=== PATIENT | female | born 1950 | race Caucasian/White ===

== ENCOUNTER 2023-07-10 10:47 | Inpatient (IN) | payer MEDICARE, OTHER ==
[2023-07-05 12:32] LABS: BILIRUBIN,URINE NEGATIVE (Neg); CLARITY,URINE CLOUDY (Clear); COLOR,URINE YELLOW (Yellow); GLUCOSE, URINE NEGATIVE (Neg); KETONES,URINE NEGATIVE (Neg); LEUKOCYTE ESTERASE ,URINE LARGE (Neg); NITRITES, URINE POSITIVE (Neg); OCCULT BLOOD,URINE MODERATE (Neg); PROTEIN,URINE NEGATIVE (Neg); UROBILINOGEN,URINE 0.2 E.U/dL (0.2-1.0)
[2023-07-05 12:33] LABS: UA COLLECTION TYPE CLN CATCH MIDSTREAM
[2023-07-05 12:36] LABS: EOSINOPHILS # (AUTO) 0.2 X10'3 (0-0.9); MEAN CORPUSCULAR VOLUME 90.4 FL (78-98); MEAN PLATELET VOLUME 7.6 FL (7.4-10.4); PRE OP HEMOGLOBIN 11.9 g/dL (12.0-16.0)
[2023-07-05 12:38] LABS: BASOPHILS # (AUTO) 0.1 X10'3 (0-0.2); BASOPHILS % (AUTO) 0.9 % (0-1); EOSINOPHILS % (AUTO) 2.6 % (0-6); LYMPHOCYTES # (AUTO) 0.8 X10'3 (1.1-4.8); LYMPHOCYTES % (AUTO) 10.8 % (21-51); MEAN CORPUSCULAR HEMOGLOBIN 29.5 PG (27.0-31.0); MEAN CORPUSCULAR HGB CONC 32.6 g/dL (33.0-36.5); MONOCYTES # (AUTO) 0.4 X10'3 (0-0.9); MONOCYTES % (AUTO) 5.2 % (2-12); NEUTROPHILS # (AUTO) 5.7 X10'3 (1.8-7.7); NEUTROPHILS % (AUTO) 80.5 % (42-75); PRE OP HEMATOCRIT 36.5 % (35.0-45.0); PRE OP PLATELET COUNT 243 X10'3 (140-440); PRE OP WHITE BLOOD COUNT 7.1 10'3 (4.8-10.8); RED BLOOD COUNT 4.04 X10'6 (4.20-5.60); RED CELL DISTRIBUTION WIDTH 15.6 % (11.5-14.5)
[2023-07-05 12:44] LABS: BACTERIA,URINE 4+ /HPF (Neg); MUCUS STRANDS NONE SEEN /LPF (Neg); SQUAMOUS EPITHELIAL CELL,UR MODERATE /LPF (FEW); WBC,URINE TNTC /HPF (0-4)
[2023-07-05 12:45] LABS: WBC CLUMPS,URINE MODERATE /HPF (NEGATIVE)
[2023-07-05 12:49] LABS: ALBUMIN 3.7 G/DL (3.4-5.0); ALBUMIN/GLOBULIN RATIO 1.1 (1.1-1.5); ALKALINE PHOSPHATASE 165 IU/L (46-116); BLOOD UREA NITROGEN 15 MG/DL (7-18); BUN/CREATININE RATIO 15.5 (10.0-20.0); CALCIUM 8.7 MG/DL (8.5-10.1); CHLORIDE 104 MMOL/L (99-107); CREATININE 0.97 MG/DL (0.40-0.90); PRE OP ALT 28 U/L (30-65); PRE OP ANION GAP 7 (8-16); PRE OP AST 15 U/L (10-37); PRE OP BILIRUB, TOTAL 0.7 MG/DL (0.0-1.0); PRE OP GLUCOSE 169 MG/DL (70-104); PRE OP POTASSIUM 4.4 MMOL/L (3.4-5.1); PRE OP SODIUM 137 MMOL/L (135-145); TOTAL CARBON DIOXIDE 25.8 MMOL/L (24-32); TOTAL PROTEIN 7.2 G/DL (6.4-8.2); eGFR 56 ML/MIN
[2023-07-05 12:51] LABS: HEMOGLOBIN A1C 7.5 % (4.5-6.2)
[~2023-07-10] VITALS: Ht 157.5 cm; Wt 74.8 kg
[2023-07-10] VITALS (25 sets, daily range): BP systolic 129–196; BP diastolic 54–100; PULSE 73–98; RESP 12–21; TEMP 97.4–98.5; O2SAT 92–99
[2023-07-10] MEDS: nitroPRUSSIDE (NIPRIDE) (200MCG/ML) 100ML Drip IV SCH ×2 (05:30→23:19)
[~2023-07-10 10:47] MED LIST: ASPI81TA52 PO; ATOR80TA PO; CARV6.253 PO; DOCUMENT DATE & TIME OF BETA-BLOCKER PO ONE; EMPA25TA PO; GLIM4TAB7 PO; METF-517 PO; RIVA20TA PO; SPIR25TA5 PO; cefazolin 2gm/D5W 100mL 100 ML IV ONE; famotidine 20mg tablet PO ONE; naloxone 0.4 mg/ml inj IV PRN; ondansetron/PF 4mg/2ml inj IV PRN; phenylephrine inj 50 MG in normal saline 250ml IV solN IV SCH; ringers solution, lacted 1,000 ML IV SCH
[2023-07-10] MEDS ORDERED: heparin 10,000 units/1 ML INJ ONE (11:31)
[2023-07-10] MEDS ORDERED: LIDOcaine 1% (10mg/ml) 2ml vial ONE (11:31)
[2023-07-10] MEDS ORDERED: ringers solution, lacted 1,000 ML IV SCH (12:05)
[2023-07-10] MEDS ORDERED: nitroPRUSSIDE sod inj. 50 MG in dextrose 5%-water 248 ML IV SCH (12:05)
[2023-07-10] MEDS ORDERED: fentaNYL/PF 50MCG/1 ML 2ML syringe IV PRN ×2 (12:05)
[2023-07-10] MEDS ORDERED: morphine 2 MG/ML inj. syringe IV PRN (12:05)
[2023-07-10] MEDS ORDERED: ondansetron/PF 4mg/2ml inj IV PRN (12:05)
[2023-07-10] MEDS ORDERED: morphine 4 MG/ML inj SYRINge IV PRN (12:05)
[2023-07-10] MEDS ORDERED: PHENYLephrine 10mg/ml inj. 100 MG in normal saline 250ml IV soln 240 ML IV SCH (12:05)
[2023-07-10] MEDS ORDERED: enalaprilat dihydrate 2.5mg/2ml vial IV PRN (12:05)
[2023-07-10] MEDS ORDERED: sevoflurane 250ml liquid IH ONE (13:21)
[2023-07-10] MEDS ORDERED: midazolam 1 mg/ML 2ml injection ONE (13:28)
[2023-07-10] MEDS ORDERED: fentaNYL/PF 50MCG/1 ML 2ML syringe ONE (13:28)
[2023-07-10] MEDS ORDERED: rocuronium 10mg/ml inj IV ONE (13:41)
[2023-07-10] MEDS ORDERED: LIDOcaine 2% (20mg/ml) 5ml vial ONE (13:41)
[2023-07-10] MEDS ORDERED: propofol inj 20 ML IV ONE (13:41)
[2023-07-10] MEDS ORDERED: ondansetron/PF 4mg/2ml inj ONE (13:42)
[2023-07-10] MEDS ORDERED: sugammadex 200mg/2ml injection IV ONE (13:43)
[2023-07-10] MEDS ORDERED: labetalol 20mg/4ml (5mg/ml) syringe IV ONE (13:59)
[2023-07-10] MEDS ORDERED: ePHEDrine 50MG/ML INJ. ONE (14:20)
--- NOTE | 2023-07-10 15:33 | NUR ---
Received from OR via ICU BED TO RR 5, accompanied by Anesthesiologist DR MARY and report given by Anesthesiolgist. PT PRESENTS WITH 20G RIGHT FOREARM, ART LINE RIGHT WRIST, SPO2 96% 10L MASK, RIGHT CAROTID JASON DRAIN 15 WITH APROX 1ML OUTPUT, FAVIAN CHECK INTACT, DISTATL PULSES PALPABLE, VSS. Addendum: 07/10/23 at 1549 by Marilu Castaneda RN, RN Amended: Links added.
[2023-07-10] MEDS: hydrALAZINE 20mg/ml inj. IV PRN ×2 (15:52→16:09)
--- NOTE | 2023-07-10 17:33 | NUR ---
Report called to receiving nurse DOMI ALBARRAN. Transferred via ICU BED ON MONITOR TO ICU 2009. PT HOOKES UP TO MONITORS, BED IN LOW LOCKED POSITION, DOMI ALBARRAN AT BEDSIDE. CHART GIVNE TO DOMI ALBARRAN WITH PT UPPER AND LOWER DENTURES IN A DENTURE CUP WITH PT STICKER. FAMILY HAS PT Belongings. Special Issues communicated to receiving nurse. Addendum: 07/10/23 at 1741 by Marilu Castaneda RN, RN Amended: Links added.
[2023-07-10] MEDS ORDERED: proCHLORperazine 10 MG/2 ml inj IV PRN (17:40)
--- NOTE | 2023-07-10 17:46 | NUR ---
pT ARRIVED FROM SURGERY AT 17;30 hooked up to monitor and linens straightened up. nauseated and vomiting compazine ordered per Dr. Merino order verbally
--- NOTE | 2023-07-10 18:40 | NUR ---
I have received report and assumed care of a 72 year old female with a history of CVA with no residual effects, CO, HTN, and DM2. Pt underwent a left carotid endarterectomy with bovine patch. pt is on Nipride to keep sbp 100-160. Pt is alert and oriented, speech clear thought process is clear, denies numbness and tingling.
[2023-07-10] MEDS: HYDROcodone/acetaminophen 10/325mg tab PO PRN (20:24)
--- NOTE | 2023-07-10 20:30 | NUR ---
pt c/o not being able to urinate, bladder scan showed 568 ml, orders to place delarosa cath, pt tolerated well, urine is clear no sediment noted
[2023-07-11] VITALS (24 sets, daily range): BP systolic 114–163; BP diastolic 47–88; PULSE 75–186; RESP 11–25; O2SAT 93–99
[2023-07-11 04:19] LABS: GLUCOSE 164 MG/DL (70-104); POTASSIUM 3.8 MMOL/L (3.5-5.1); SODIUM 138 MMOL/L (135-145)
[2023-07-11 04:20] LABS: ALANINE AMINOTRANSFERASE 23 U/L (12-78); ALBUMIN 3.1 G/DL (3.4-5.0); ALKALINE PHOSPHATASE 133 IU/L (46-116); ANION GAP 5 (8-16); ASPARTATE AMINO TRANSFERASE 16 U/L (10-37); BILIRUBIN,TOTAL 0.6 MG/DL (0.1-1.0); BLOOD UREA NITROGEN 15 MG/DL (7-18); CALCIUM 8.1 MG/DL (8.5-10.1); CHLORIDE 105 MMOL/L (99-107); CREATININE 0.88 MG/DL (0.40-0.90); TOTAL PROTEIN 6.2 G/DL (6.4-8.2); eCRCL 46 ML/MIN; eGFR 63 ML/MIN
[2023-07-11] MEDS: EMPAGLIFLOZIN 25 MG TABLET PO SCH ×2 (08:00→09:21)
[2023-07-11] MEDS: K and/or MAG REPLACEMENT MC SCH (08:00)
[2023-07-11] MEDS ORDERED: carvedilol 6.25mg tablet PO SCH (08:00)
[2023-07-11] MEDS: aspirin 81mg, enteric-coated 1 TAB TABLET.DR PO SCH (09:21)
[2023-07-11] MEDS: rivaroxaban 20mg tablet PO SCH (09:21)
[2023-07-11] MEDS ORDERED: dextrose 50%-water 50ml dispensing syringe IV PRN ×2 (09:55)
[2023-07-11] MEDS ORDERED: glucagon, human recombinant 1mg kit SUBCUT PRN (09:55)
[2023-07-11] MEDS ORDERED: DEXTROSE 15 GM of carb/4 tabs (each vial/BOTTLE has 4 tablets) PO PRN ×2 (09:55)
[2023-07-11] MEDS ORDERED: insulin Lispro (HumaLOG) vial - multi-dose SQ SCH (09:55)
[2023-07-11] MEDS ORDERED: MESSAGE TO PHARMACY PO ONE (09:55)
[2023-07-11] MEDS: spironolactone 25 MG tablet PO SCH (10:28)
[2023-07-11] MEDS: HYDROcodone/acetaminophen 10/325mg tab PO PRN ×2 (11:05→20:25)
--- NOTE | 2023-07-11 11:20 | NUR ---
Diabetes consult: Pt presents with an A1c of 7.5% this admit. Given advanced age, A1c is appropriate per ADA guidelines therefore nutrition diabetes education is not warranted at this time. Will remain available for any nutrition questions or concerns. Addendum: 07/11/23 at [address] Amended: Links added.
[2023-07-11] MEDS ORDERED: METF-438 PO (11:29)
--- NOTE | 2023-07-11 14:52 | NUR ---
Patient was up walking the unit with assistance, walked 150ft x2. Patient was sitting up in chair at 1450 when she went into SVT with rate as high as 186. EKG was done and patient transferred back to bed, subsequently came out of rhythm. Blood pressure was also elevated with systolic of 184. Radio Maintainer was notified and ordered stat Lopressor (see orders). Patient also reports history of Afib. Rhythm and rate returned to normal sinus after administering doses of Lopressor.
[2023-07-11] MEDS ORDERED: metoprolol tartrate 25mg tablet PO STA (17:11)
[2023-07-11] MEDS ORDERED: metoprolol tartrate 1mg/ml inj IV STA (17:11)
[2023-07-11] MEDS ORDERED: magnesium Cl slow-release 64mg tablet PO PRN (17:20)
[2023-07-11] MEDS ORDERED: potassium Cl 20 mEq SR tablet PO PRN ×2 (17:20)
[2023-07-11] MEDS ORDERED: magnesium 4gm in 100ml NS 100 ML IV PRN (17:20)
[2023-07-11] MEDS ORDERED: magnesium 2GM in 50ml NS 50 ML IV PRN (17:20)
[2023-07-11] MEDS ORDERED: potassium Cl 40MEQ/1/2NS 520ml 520 ML IV PRN (17:20)
--- NOTE | 2023-07-11 18:30 | NUR ---
Patient in room CICU 2009. I have received report from Deborah ALBARRAN and had the opportunity to ask questions and assume patient care.
[2023-07-11] MEDS: metoprolol tartrate 25mg tablet PO SCH (20:23)
[2023-07-11] MEDS: atorvastatin 20mg tablet PO SCH (20:24)
[2023-07-11] MEDS: diphenhydrAMINE 25mg capsule PO PRN (20:26)
[2023-07-11 20:27] LABS: ALANINE AMINOTRANSFERASE 21 U/L (12-78); ALBUMIN 3.3 G/DL (3.4-5.0); ALBUMIN/GLOBULIN RATIO 0.9 (1.1-1.5); ALKALINE PHOSPHATASE 143 IU/L (46-116); ANION GAP 5 (8-16); ASPARTATE AMINO TRANSFERASE 10 U/L (10-37); BILIRUBIN,TOTAL 0.7 MG/DL (0.1-1.0); BLOOD UREA NITROGEN 13 MG/DL (7-18); BUN/CREATININE RATIO 11.1 (10.0-20.0); CALCIUM 8.6 MG/DL (8.5-10.1); CHLORIDE 103 MMOL/L (99-107); CREATININE 1.17 MG/DL (0.40-0.90); GLUCOSE 224 MG/DL (70-104); POTASSIUM 3.7 MMOL/L (3.5-5.1); SODIUM 135 MMOL/L (135-145); TOTAL CARBON DIOXIDE 27.3 MMOL/L (24-32); TOTAL PROTEIN 6.9 G/DL (6.4-8.2); eCRCL 34 ML/MIN; eGFR 45 ML/MIN
[2023-07-11] MEDS ORDERED: metFORMIN 500mg tablet PO SCH (21:00)
[2023-07-11] MEDS ORDERED: insulin glargine (Lantus) pen - multi-dose SQ SCH (21:00)
[2023-07-12] VITALS (21 sets, daily range): BP systolic 105–179; BP diastolic 40–76; PULSE 15–98; RESP 12–20; TEMP 97.4–97.9; O2SAT 90–98
[2023-07-12] MEDS: metoprolol tartrate 25mg tablet PO SCH ×4 (02:00→20:11)
--- NOTE | 2023-07-12 05:58 | NUR ---
got pt up to the chair and she needed a moderate amount of assistance to get out of the bed. She was unable to sit up on her own and scoot her way to the edge of the bed without assistance.
[2023-07-12 06:14] LABS: BASOPHILS % (AUTO) 0.5 % (0-1); EOSINOPHILS # (AUTO) 0.2 X10'3 (0-0.9); EOSINOPHILS % (AUTO) 2.5 % (0-6); HEMATOCRIT 34.8 % (35.0-45.0); HEMOGLOBIN 11.2 g/dl (12.0-16.0); LYMPHOCYTES # (AUTO) 1.1 X10'3 (1.1-4.8); LYMPHOCYTES % (AUTO) 12.4 % (21-51); MEAN CORPUSCULAR HEMOGLOBIN 29.3 PG (27.0-31.0); MEAN CORPUSCULAR HGB CONC 32.4 g/dL (33.0-36.5); MEAN CORPUSCULAR VOLUME 90.7 FL (78-98); MONOCYTES # (AUTO) 0.8 X10'3 (0-0.9); MONOCYTES % (AUTO) 8.3 % (2-12); NEUTROPHILS % (AUTO) 76.3 % (42-75); PLATELET COUNT 262 X10'3 (140-440); RED BLOOD COUNT 3.83 X10'6 (4.20-5.60); WHITE BLOOD COUNT 9.2 X10'3 (4.5-11.0)
--- NOTE | 2023-07-12 06:14 | NUR ---
Problems reprioritized. Patient report given, questions answered & plan of care reviewed with Paige ALBARRAN.
--- NOTE | 2023-07-12 06:30 | NUR ---
Assumed care of pt after receiving report from Tanesha ALBARRAN.
[2023-07-12] MEDS: aspirin 81mg, enteric-coated 1 TAB TABLET.DR PO SCH (07:52)
[2023-07-12] MEDS: EMPAGLIFLOZIN 25 MG TABLET PO SCH (07:53)
[2023-07-12] MEDS: rivaroxaban 20mg tablet PO SCH (07:53)
[2023-07-12] MEDS: spironolactone 25 MG tablet PO SCH (07:55)
[2023-07-12] MEDS: K and/or MAG REPLACEMENT MC SCH (08:00)
--- NOTE | 2023-07-12 08:11 | NUR ---
Pt has been OOB to chair. She stood briefly to change position and had trouble getting up to stand. She lost balance and needs 1 secure assist. She was assisted to commode to void, and is now is chair to finish breakfast.
[2023-07-12 09:36] LABS: POTASSIUM 3.5 MMOL/L (3.5-5.1)
[2023-07-12] MEDS ORDERED: HYDROcodone/acetaminophen 10/325mg tab PO PRN (11:20)
--- NOTE | 2023-07-12 11:50 | NUR ---
Pt has been up to the commode, with 1 assist, several times to void. She is now back to the chair and ready for lunch.
[2023-07-12] MEDS: levoFLOXACIN 500mg tablet PO SCH (13:26)
--- NOTE | 2023-07-12 15:14 | NUR ---
Pt ate lunch, visited w/ her sister, and was assisted back to bed. Pt has been resting well for about 2 hr.
--- NOTE | 2023-07-12 15:31 | NUR ---
Pt to be transferred to [facility] Rm 3024 B. She has been drinking and voiding many times during the day. Abx's restarted secondary to UTI prior to admission. Will call report soon.
--- NOTE | 2023-07-12 16:00 | NUR ---
Pt and belongings sent to 3024B by WC and sung w/ Brown ALBARRAN
--- NOTE | 2023-07-12 16:13 | NUR ---
Pt received from FERRY PILOTDEION Zamora. Pt placed and settled in room
[2023-07-12] MEDS: diphenhydrAMINE 25mg capsule PO PRN (20:10)
[2023-07-12] MEDS: atorvastatin 20mg tablet PO SCH (20:10)
--- NOTE | 2023-07-13 00:33 | NUR ---
Pt having increased HR 180s, bp 123/70, notified, gave new orders - IV ativan 1mg IV x1, IV metoprolol 5mg x1. Orders updated, charge nurse notified.
[2023-07-13] MEDS ORDERED: LORazepam 2 mg/ml vial IV ONE ×2 (00:35→07:00)
[2023-07-13] MEDS ORDERED: metoprolol tartrate 1mg/ml inj IV ONE ×2 (00:35→07:00)
[2023-07-13 02:00] VITALS: BP 144/63; PULSE 89; RESP 18; TEMP 97; O2SAT 90
[2023-07-13] MEDS: metoprolol tartrate 25mg tablet PO SCH ×3 (02:00→14:15)
[2023-07-13 06:00] VITALS: BP 171/78; PULSE 98; RESP 16; TEMP 100.6; O2SAT 91
--- NOTE | 2023-07-13 07:13 | NUR ---
This nurse has reviewed and agrees w/the physical assessment of this patient.
[2023-07-13 07:36] LABS: MAGNESIUM 2.3 MG/DL (1.5-2.4); POTASSIUM 3.8 MMOL/L (3.5-5.1)
[2023-07-13] MEDS: K and/or MAG REPLACEMENT MC SCH (07:45)
[2023-07-13 08:00] VITALS: RESP 16; O2SAT 98
[2023-07-13] MEDS: spironolactone 25 MG tablet PO SCH (08:25)
[2023-07-13] MEDS: EMPAGLIFLOZIN 25 MG TABLET PO SCH (08:26)
[2023-07-13] MEDS: aspirin 81mg, enteric-coated 1 TAB TABLET.DR PO SCH (08:26)
[2023-07-13] MEDS: levoFLOXACIN 500mg tablet PO SCH (08:26)
[2023-07-13 11:00] VITALS: BP 137/63; PULSE 89; RESP 22; TEMP 97.9; O2SAT 90
[2023-07-13] MEDS ORDERED: METO50TA16 PO (11:34)
[2023-07-13 14:15] VITALS: BP_SYST 137; PULSE 89
--- NOTE | 2023-07-13 15:38 | NUR ---
Pt AOX3, VSS on RA. Pt's PIV removed with cannula intact. Pt denies pain. Pt's sister at bedside and will follow to [facility]. Pt's discharge was reviewed and questions answered.
[2023-07-13] MEDS ORDERED: SULF1TAB48 PO (17:16)
[2023-07-13] MEDS ORDERED: rivaroxaban 20mg tablet PO SCH (18:00)
== END 2023-07-13 15:43 | DRG 38 ==
LOC: PAS IN 11:05 → CICU 2S 17:15 → PCU 3S 07-12 16:15
PROVIDERS: ADMIT Surgery; ATTEND Surgery
PROC: 03CN0ZZ Extirpation of Matter from Left External Carotid Artery, Open Approach (ICD-10-PCS; 2023-07-10)
PROC: 03UN0KZ Supplement Left External Carotid Artery with Nonautologous Tissue Substitute, Open Approach (ICD-10-PCS; 2023-07-10)
PROC: 03CL0ZZ Extirpation of Matter from Left Internal Carotid Artery, Open Approach (ICD-10-PCS; principal; 2023-07-10 13:21)
DX: I65.23 Occlusion and stenosis of bilateral carotid arteries (principal); N39.0 Urinary tract infection, site not specified; I48.0 Paroxysmal atrial fibrillation; I25.10 Atherosclerotic heart disease of native coronary artery without angina pectoris; I25.5 Ischemic cardiomyopathy; E11.9 Type 2 diabetes mellitus without complications; Z86.73 Personal history of transient ischemic attack (TIA), and cerebral infarction without residual deficits; Z87.891 Personal history of nicotine dependence; Z95.1 Presence of aortocoronary bypass graft; Z79.01 Long term (current) use of anticoagulants; Z79.82 Long term (current) use of aspirin; Z79.84 Long term (current) use of oral hypoglycemic drugs; Z79.899 Other long term (current) drug therapy; Z80.1 Family history of malignant neoplasm of trachea, bronchus and lung; Z88.8 Allergy status to other drugs, medicaments and biological substances
CPT/HCPCS: 36415; 80053; 81001; 82948; 83036; 83735; 84132; 85025; 86885; 86900; 86901; 87077; 87081; 87088; 87186; 93005; 95813; 95816; 97116; 97161; 97530; A4615; A4618; A6213; A6258; A6449; A7000; C1758; G0378; J0360; J0690; J0780; J1644; J1815; J2060; J2250; J2270; J2310; J2370; J2405; J2704; J3010; J3490; J7030; J7040; J7050; J7120; Q0163